=== PATIENT | female | born 1935 | race Caucasian/White ===

== ENCOUNTER 2016-11-13 17:49 | Emergency (ER) | payer MEDICARE, OTHER ==
[~2016-11-13 17:49] MED LIST: ASPIRIN CHEWABL81 MG PO; CARDIZEM CD300 MG PO; CARDIZEM60 MG PO; CRESTOR10 MG PO; ELIQUIS5 MG PO; GLUCOPHAGE 500500 MG PO; IPRAT-ALBUT 0.5-3 ML NEB; LANOXIN TAB 00.25 MG PO; PROVENTIL HFA 61 INH INH; SYNTHROID125 MCG PO; VITAMIN B-12500 MCG PO; VITAMIN C 500500 MG PO; VITAMIN D2000 UNI1 PO
[2016-11-13 19:01] LABS: RED BLOOD COUNT 3.41 M/UL (4.00-5.10); WHITE BLOOD COUNT 9.2 K/UL (4.5-11.0)
[2016-11-13 23:55] LABS: HEMOGLOBIN 8.2 gm/dl (12.3-15.3)
== END 2016-11-14 00:27 | disposition home or self-care (01) ==
LOC: ER1 17:49
PROVIDERS: Family Medicine; Specialist/Technologist Athletic Trainer
DX: D64.9 Anemia, unspecified (principal); J44.9 Chronic obstructive pulmonary disease, unspecified; I48.91 Unspecified atrial fibrillation; E11.9 Type 2 diabetes mellitus without complications; Z79.82 Long term (current) use of aspirin; Z79.01 Long term (current) use of anticoagulants; Z79.899 Other long term (current) drug therapy; Z79.84 Long term (current) use of oral hypoglycemic drugs
CPT/HCPCS: 36415; 36430; 80053; 82272; 83540; 83550; 85014; 85018; 85025; 85027; 85610; 85730; 86850; 86900; 86901; 86920; 94664; 99284; P9016

== ENCOUNTER 2016-12-30 11:20 | Inpatient (IN) | payer MEDICARE ==
[~2016-12-30] VITALS: Ht 172.7 cm; Wt 90.0 kg
[2016-12-30 12:32] LABS: RED BLOOD COUNT 3.36 M/UL (4.00-5.10)
[2016-12-30 12:34] LABS: HEMOGLOBIN 6.8 gm/dl (12.3-15.3)
[2016-12-30] MEDS ORDERED: TOUJEO INJ (22:30)
[2016-12-30] MEDS ORDERED: METOPROLOL TART25 MG PO (22:31)
[2016-12-30] MEDS ORDERED: TESSALON PERLE100 MG PO (22:31)
[2016-12-30] MEDS ORDERED: LASIX 40 MG TAB40 MG PO (22:32)
[2016-12-30] MEDS ORDERED: DALIRESP 500500 MCG PO (22:33)
[2016-12-30] MEDS ORDERED: ALLEGRA ALLERG180 MG PO (22:34)
[2016-12-30] MEDS ORDERED: HERB LAX PO (22:37)
[2016-12-30] MEDS ORDERED: PULMICORT FLEX90 MCG INH (22:38)
[2016-12-30] MEDS ORDERED: ANORO ELLIPTA1 EACH INH (22:39)
[2016-12-30] MEDS ORDERED: PRO AIR INH (22:41)
[2016-12-31 05:02] LABS: HEMOGLOBIN 7.7 gm/dl (12.3-15.3); RED BLOOD COUNT 3.51 M/UL (4.00-5.10); WHITE BLOOD COUNT 19.7 K/UL (4.5-11.0)
[2016-12-31 09:30] LABS: HEMOGLOBIN 8.2 gm/dl (12.3-15.3)
[2017-01-01 04:53] LABS: RED BLOOD COUNT 3.73 M/UL (4.00-5.10); WHITE BLOOD COUNT 15.1 K/UL (4.5-11.0)
[2017-01-02 05:15] LABS: HEMOGLOBIN 7.9 gm/dl (12.3-15.3); RED BLOOD COUNT 3.66 M/UL (4.00-5.10); WHITE BLOOD COUNT 13.9 K/UL (4.5-11.0)
[2017-01-02] MEDS ORDERED: LEVAQUIN750 MG PO (12:55)
[2017-01-02] MEDS ORDERED: MUCINEX600 MG PO (12:56)
[2017-01-02] MEDS ORDERED: IRON325 M1 PO (12:56)
[2017-01-02] MEDS ORDERED: LANOXIN TAB 00.25 MG PO (12:57)
== END 2017-01-02 15:35 | disposition home health service (06) | DRG 811 ==
LOC: ER1 11:20 → ZEROF 13:24 → MED SURG 4 15:31
PROVIDERS: Family Medicine; Physician Assistant; ADMIT Internal Medicine
PROC: 30233N1 Transfusion of Nonautologous Red Blood Cells into Peripheral Vein, Percutaneous Approach (ICD-10-PCS; principal; 2016-12-30)
PROC: 30233N1 Transfusion of Nonautologous Red Blood Cells into Peripheral Vein, Percutaneous Approach (ICD-10-PCS; 2016-12-30)
DX: D50.9 Iron deficiency anemia, unspecified (principal); J18.9 Pneumonia, unspecified organism; J96.21 Acute and chronic respiratory failure with hypoxia; J44.0 Chronic obstructive pulmonary disease with (acute) lower respiratory infection; J44.1 Chronic obstructive pulmonary disease with (acute) exacerbation; J90 Pleural effusion, not elsewhere classified; E87.70 Fluid overload, unspecified; I48.0 Paroxysmal atrial fibrillation; I48.2 Chronic atrial fibrillation; E11.9 Type 2 diabetes mellitus without complications; I10 Essential (primary) hypertension; E03.9 Hypothyroidism, unspecified; E78.5 Hyperlipidemia, unspecified; J31.0 Chronic rhinitis; E66.9 Obesity, unspecified; Z87.891 Personal history of nicotine dependence; Z99.81 Dependence on supplemental oxygen; Z79.01 Long term (current) use of anticoagulants; Z79.51 Long term (current) use of inhaled steroids; Z79.4 Long term (current) use of insulin; Z79.84 Long term (current) use of oral hypoglycemic drugs; Z79.82 Long term (current) use of aspirin; Z79.899 Other long term (current) drug therapy; Z68.30 Body mass index [BMI] 30.0-30.9, adult; Z98.42 Cataract extraction status, left eye; Z98.41 Cataract extraction status, right eye; Z98.890 Other specified postprocedural states; Z80.0 Family history of malignant neoplasm of digestive organs; Z84.89 Family history of other specified conditions
CPT/HCPCS: ECHO; 36415; 36430; 36600; 71010; 71020; 71250; 80048; 80053; 80061; 82272; 82550; 82553; 82607; 82728; 82746; 82803; 82962; 83540; 83550; 83615; 83735; 83874; 83880; 84100; 84146; 84439; 84443; 84484; 85014; 85018; 85025; 85027; 85045; 85610; 86850; 86900; 86901; 86920; 87040; 87070; 87077; 87205; 93005; 93306; 94640; 94664; 96360; 96361; 99285; J1335; J1940; J1956; J7030; J7040; J7050; P9016